=== PATIENT | male | born 1950 | race Caucasian/White ===

== ENCOUNTER 2023-10-20 03:16 | Inpatient (IN) | payer MEDICARE, OTHER ==
[~2023-10-20] VITALS: Ht 167.6 cm; Wt 77.1 kg
[2023-10-20 03:43] LABS: BASOPHILS % (AUTO) 0.6 % (0.0-2.0); EOSINOPHILS # (AUTO) 0.1 K/uL (0.0-0.7); EOSINOPHILS % (AUTO) 1.7 % (0.0-6.0); HEMATOCRIT 35 % (39-51); HEMOGLOBIN 12.2 g/dL (13.5-17.5); LYMPHOCYTES # (AUTO) 1.4 K/uL (0.8-4.8); LYMPHOCYTES % (AUTO) 22.7 % (20.0-44.0); MEAN CORPUSCULAR HEMOGLOBIN 32 PG (26.0-33.0); MEAN CORPUSCULAR HGB CONC 35 g/dl (31.0-36.0); MEAN CORPUSCULAR VOLUME 93 fL (80-96); MONOCYTES # (AUTO) 0.5 K/uL (0.1-1.30); MONOCYTES % (AUTO) 8.2 % (2.0-12.0); NEUTROPHILS # (AUTO) 4.2 K/uL (1.8-8.9); NEUTROPHILS % (AUTO) 66.8 % (43.0-81.0); PLATELET COUNT (AUTO) 200 K/uL (150-450); RED BLOOD CELL COUNT(AUTO) 3.82 MIL/uL (4.5-6.0); RED CELL DISTRIBUTION WIDTH 13.3 % (11.5-15.0); WHITE BLOOD COUNT (AUTO) 6.4 K/uL (4.3-11.0)
[2023-10-20 03:51] LABS: CALCIUM, SERUM 9.1 mg/dL (8.5-10.1); CARBON DIOXIDE 36 mmol/L (21-32); CHLORIDE 108 mmol/L (98-107); CREATININE 0.9 mg/dL (0.6-1.3); GLUCOSE 98 mg/dL (74-106); POTASSIUM 3.5 mmol/L (3.5-5.1); SODIUM SERUM 151 mmol/L (136-145); UREA NITROGEN, BLOOD 21 mg/dL (7-18)
[2023-10-20 03:57] LABS: ALANINE AMINOTRANSFERASE 36 U/L (12-78); ALKALINE PHOSPHATASE 77 U/L (46-116); ASPARTATE AMINOTRANSFERASE 18 U/L (15-37); BILIRUBIN,DIRECT 0.1 mg/dL (0.0-0.2); BILIRUBIN,TOTAL 0.4 mg/dL (0.2-1.0)
[2023-10-20 03:58] LABS: ACETAMINOPHEN <10 ug/ml (10-30); ALCOHOL, BLOOD < 3 mg/dL (0-10)
[2023-10-20] MEDS: IV NS 0.9% 1,000 ML BAG IV ONE (05:15)
[2023-10-20 05:44] LABS: APPEARANCE,URINE CLEAR (CLEAR); BILIRUBIN,URINE NEGATIVE (NEGATIVE); BLOOD, URINE NEGATIVE Ery/uL (NEGATIVE); COLOR,URINE YELLOW (YELLOW); KETONES,URINE NEGATIVE (NEGATIVE); LEUKOCYTE ESTERASE ,URINE NEGATIVE (NEGATIVE); NITRITE, URINE NEGATIVE (NEGATIVE); PH,URINE 5.5 (5.0-8.0); PROTEIN,URINE NEGATIVE (NEGATIVE); UGLUCOSE NEGATIVE (NEGATIVE); UROBILINOGEN,URINE 0.2 EU/dL (0.2)
[2023-10-20 05:52] LABS: AMPHETAMINE, URINE POSITIVE (NEGATIVE); BARBITURATE, URINE NEGATIVE (NEGATIVE); BENZODIAZEPINE, URINE NEGATIVE (NEGATIVE); CANNABINOID, URINE NEGATIVE (NEGATIVE); COCCAINE, URINE NEGATIVE (NEGATIVE); OPIATE, URINE NEGATIVE (NEGATIVE); PHENCYCLIDINE SCREEN,URINE NEGATIVE (NEGATIVE)
[2023-10-20] MEDS ORDERED: CLON1TAB12 PO (08:27)
[2023-10-20] MEDS ORDERED: AMLO-213 PO (08:27)
[2023-10-20] MEDS ORDERED: MULT-594 PO (08:27)
[2023-10-20] MEDS ORDERED: BENZ1TAB7 PO (08:27)
[2023-10-20] MEDS ORDERED: CHOL200059 PO (08:27)
[2023-10-20] MEDS ORDERED: FLUT100B3 IH (08:27)
[2023-10-20] MEDS ORDERED: ATOR10TA PO (08:27)
[2023-10-20] MEDS ORDERED: OLAN20TA3 PO (08:27)
[2023-10-20 10:15] VITALS: BP 104/59; TEMP 98.7; O2SAT 98
[2023-10-20] MEDS ORDERED: TEMAZEPAM 7.5 MG CAPSULE PO PRN (10:30)
[2023-10-20] MEDS ORDERED: MAG HYDROX/AL HYDROX/SIMETH 30 ML UDC PO PRN (10:30)
[2023-10-20] MEDS ORDERED: MAGNESIUM HYDROXIDE 30 ML UDC PO PRN (10:30)
[2023-10-20] MEDS: BLOOD SUGAR DIAGNOSTIC 1 EACH STRIP IN ONE (11:17)
[2023-10-20 16:00] VITALS: BP_SYST 107; BP_SYST 127; BP_DIAS 62; BP_DIAS 67; TEMP 97.7; TEMP 97.9; O2SAT 94; O2SAT 96
[2023-10-20 20:00] VITALS: BP 108/65; TEMP 98.1; O2SAT 99
[2023-10-21 07:47] LABS: ALANINE AMINOTRANSFERASE 32 U/L (12-78); ALBUMIN 3.1 g/dL (3.4-5.0); ALKALINE PHOSPHATASE 71 U/L (46-116); ASPARTATE AMINOTRANSFERASE 18 U/L (15-37); BILIRUBIN,TOTAL 0.4 mg/dL (0.2-1.0); CALCIUM, SERUM 9.2 mg/dL (8.5-10.1); CARBON DIOXIDE 28 mmol/L (21-32); CHLORIDE 107 mmol/L (98-107); CREATININE 0.8 mg/dL (0.6-1.3); GLUCOSE 95 mg/dL (74-106); POTASSIUM 4.1 mmol/L (3.5-5.1); SODIUM SERUM 142 mmol/L (136-145); TOTAL PROTEIN, SERUM 7.2 g/dL (6.4-8.2); UREA NITROGEN, BLOOD 14 mg/dL (7-18)
[2023-10-21 08:00] VITALS: BP 112/72; TEMP 97.7; O2SAT 100
[2023-10-21 08:03] LABS: THYROID STIMULATING HORMONE 1.26 uIU/mL (0.358-3.74)
[2023-10-21] MEDS: CHOLECALCIFEROL 1,000 UNIT TABLET (VIT D3) PO SCH (08:22)
[2023-10-21] MEDS: ATORVASTATIN 10 MG TABLET PO SCH (08:22)
[2023-10-21] MEDS: BENZTROPINE MESYLATE (1 MG) 1 MG TABLET PO SCH (08:22)
[2023-10-21] MEDS: AMLODIPINE BESYLATE 10 MG TABLET PO SCH (08:22)
[2023-10-21] MEDS: MULTIVITAMINS,THERAGRAN 1 UDTAB TABLET PO SCH (08:22)
[2023-10-21] MEDS: BUDESONIDE RESPULE INH 0.5 MG/2 ML AMPUL.NEB NEB SCH (09:00)
[2023-10-21] MEDS: OLANZAPINE 10 MG TABLET PO SCH (09:53)
[2023-10-21 20:00] VITALS: BP 99/55; TEMP 97.9; O2SAT 96
[2023-10-22 08:00] VITALS: BP 119/63; TEMP 98.9; O2SAT 100
[2023-10-22 10:00] VITALS: O2SAT 99
[2023-10-22 10:11] VITALS: O2SAT 100
[2023-10-22 16:00] VITALS: BP 117/71; TEMP 98; O2SAT 97
[2023-10-22 20:30] VITALS: BP 114/63; TEMP 98.1; O2SAT 97
[2023-10-22] MEDS: OLANZAPINE 10 MG TABLET PO SCH (21:22)
[2023-10-23 08:00] VITALS: BP 117/73; TEMP 96.9; O2SAT 99
[2023-10-23 16:20] VITALS: BP 98/67; TEMP 97.1; O2SAT 95
[2023-10-23 21:07] VITALS: BP 110/68; TEMP 97.9; O2SAT 95
[2023-10-24] VITALS (7 sets, daily range): BP systolic 105–118; BP diastolic 56–75; TEMP 98.1–98.7; O2SAT 94–100
[2023-10-25] VITALS (7 sets, daily range): BP systolic 104–105; BP diastolic 56–65; TEMP 97.8–98.1; O2SAT 95–99
[2023-10-26 08:00] VITALS: BP 105/61; TEMP 98.6; O2SAT 97
[2023-10-26 16:00] VITALS: BP 100/54; TEMP 98.6; O2SAT 97
[2023-10-26 20:00] VITALS: BP 98/58; TEMP 98.8; O2SAT 98
[2023-10-27 08:00] VITALS: BP 99/60; TEMP 97.9; O2SAT 96
[2023-10-27 10:01] VITALS: O2SAT 98
[2023-10-27 10:16] VITALS: O2SAT 99
[2023-10-27 16:00] VITALS: BP 99/60; TEMP 98.1; O2SAT 94
[2023-10-27 20:00] VITALS: BP 98/56; TEMP 98.5; O2SAT 96
[2023-10-28 08:00] VITALS: BP 105/60; TEMP 98; O2SAT 97
[2023-10-28 08:17] VITALS: O2SAT 96
[2023-10-28 08:27] VITALS: O2SAT 99
[2023-10-28 16:00] VITALS: BP 100/60; TEMP 97.9; O2SAT 97
[2023-10-29 08:00] VITALS: BP 90/50; TEMP 98.1; O2SAT 100
[2023-10-29 16:00] VITALS: BP 113/60; TEMP 98.1; O2SAT 99
[2023-10-29 20:36] VITALS: BP 117/53; TEMP 98; O2SAT 98
[2023-10-29] MEDS: NICOTINE PATCH (14MG) 14 MG PATCH.TD24 TD SCH (21:22)
[2023-10-30 08:00] VITALS: BP 107/67; TEMP 98.2; O2SAT 98
[2023-10-30 16:00] VITALS: BP 104/67; TEMP 97.8; O2SAT 100
[2023-10-30 20:25] VITALS: BP 108/67; TEMP 98.1; O2SAT 99
[2023-10-31 08:00] VITALS: BP 114/74; TEMP 98.6; O2SAT 99
[2023-10-31 16:00] VITALS: BP 116/70; TEMP 97.8; O2SAT 99
[2023-10-31 21:29] VITALS: BP 113/69; TEMP 98.4; O2SAT 98
[2023-11-01 08:00] VITALS: BP 111/77; TEMP 98; O2SAT 97
[2023-11-01] MEDS: ACETAMINOPHEN 325 MG TABLET PO PRN (10:58)
[2023-11-01 16:00] VITALS: BP 112/60; TEMP 98.1; O2SAT 95
[2023-11-01] MEDS: clonazePAM 0.5 MG TABLET PO PRN (17:03)
[2023-11-01 17:30] VITALS: O2SAT 98
[2023-11-01 17:43] VITALS: O2SAT 99
[2023-11-01 20:41] VITALS: BP 106/59; TEMP 98.5; O2SAT 98
[2023-11-02 08:00] VITALS: BP 107/74; TEMP 97.8; O2SAT 98
[2023-11-02 16:00] VITALS: BP_SYST 110; BP_SYST 132; BP_DIAS 66; BP_DIAS 76; TEMP 97.9; TEMP 98.7; O2SAT 97; O2SAT 98
[2023-11-02 20:00] VITALS: BP 92/59; TEMP 98.7; O2SAT 97
[2023-11-03 08:00] VITALS: BP 127/89; TEMP 98.6; O2SAT 100
== END 2023-11-03 13:25 | DRG 885 ==
LOC: ER 03:28 → GPS 09:26
PROVIDERS: ADMIT Psychiatry & Neurology Psychiatry; ATTEND Student in an Organized Health Care Education/Training Program
DX: F20.9 Schizophrenia, unspecified (principal); E87.0 Hyperosmolality and hypernatremia; E44.1 Mild protein-calorie malnutrition; R45.851 Suicidal ideations; Z59.02 Unsheltered homelessness; F17.210 Nicotine dependence, cigarettes, uncomplicated; E86.0 Dehydration; Z68.27 Body mass index [BMI] 27.0-27.9, adult; Z86.39 Personal history of other endocrine, nutritional and metabolic disease; Z87.19 Personal history of other diseases of the digestive system; E78.5 Hyperlipidemia, unspecified; E88.09 Other disorders of plasma-protein metabolism, not elsewhere classified; I10 Essential (primary) hypertension; E86.1 Hypovolemia; F32.A Depression, unspecified
CPT/HCPCS: 36415; 80048-TC; 80053-TC; 80061-TC; 80076-TC; 82962-TC; 84443-TC; 85025-TC; 94799-TC; G0480; J7030